=== PATIENT | male | born 1965 | race Caucasian/White ===

== ENCOUNTER 2017-02-04 22:50 | Emergency (ER) | payer BC ==
[~2017-02-04] VITALS: Ht 177.8 cm; Wt 76.2 kg
[2017-02-04] MEDS ORDERED: PROSCAR5 MG ORAL (23:16)
--- NOTE | 2017-02-04 23:22 | Emergency Room Report ---
History of Present Illness General Chief Complaint: Upper Extremity Injury Source: Patient Present Illness HPI Is a 51-year-old male who is right-hand dominant. He presents with chief complaint of left wrist injury. He was riding a riding his skateboard. He hit the brake and fell forward on an outstretched hand. He landed on his left wrist. Complaining of pain then. Since then his been getting progressively worse. Now throbbing in nature. Localized to the left wrist. Radiating to the forearm. Worse with movement. Pain is 9/10. No other injury. Did not pass out. Allergies: Coded Allergies: PENICILLINS (Verified Allergy, Unknown, 02/04/17) Patient History Past Medical History: see triage record, old chart reviewed Past Surgical History: none Pertinent Family History: none Social History: Denies: smoking Immunizations: other Reviewed Nursing Documentation: PMH: Agreed, PSxH: Agreed Nursing Documentation-[facility] Past Medical History: No Stated History Review of Systems Eye: Denies: eye pain, blurred vision ENT: Denies: ear pain, nose congestion, throat swelling Respiratory: Denies: cough, shortness of breath Cardiovascular: Denies: chest pain, palpitations Gastrointestinal: Denies: abdominal pain, diarrhea, nausea, vomiting Musculoskeletal: Reports: joint pain, muscle pain, Denies: back pain Skin: Denies: rash Neurological: Denies: headache, numbness Endocrine: Denies: increased thirst, increased urine Hematologic/Lymphatic: Denies: easy bruising All Other Systems: negative except mentioned in HPI Physical Exam Vital Signs Date Time Temp Pulse Resp B/P (MAP) Pulse Ox O2 Delivery O2 Flow Rate FiO2 02/04/17 23:08 98.2 70 18 118/84 100 Room Air vitals normal Sp02 EP Interpretation: reviewed, normal General Appearance: well appearing, no apparent distress, alert Head: normocephalic, atraumatic Eyes: bilateral eye PERRL, bilateral eye EOMI ENT: hearing grossly normal, normal pharynx Neck: full range of motion, supple, no meningismus Respiratory: chest non-tender, lungs clear, normal breath sounds Cardiovascular #1: regular rate, rhythm, no murmur Gastrointestinal: normal bowel sounds, non tender, no mass, no organomegaly, no bruit, non-distended Musculoskeletal: back normal, gait/station normal, tender - Tenderness to the left wrist. compartment is soft. Sensation normal. Radial pulse 2+. Decreased range of motion secondary to pain. Psychiatric: mood/affect normal Skin: warm/dry Procedures Splinting Splinting : Consent: Verbal Location: left wrist Hand-Made Type: plaster Splint: volar Pre-Proc Neuro Vasc Exam: normal Post-Proc Neuro Vasc Exam: normal Patient Tolerated: Well Complications: None Medical Decision Making Diagnostic Impression: Primary Impression: Scaphoid fracture, wrist, closed Qualified Codes: S62.025A - Nondisplaced fracture of middle third of navicular [scaphoid] bone of left wrist, initial encounter for closed fracture Additional Impression: Left wrist sprain Qualified Codes: S63.502A - Unspecified sprain of left wrist, initial encounter ER Course Patient present with a fall. X-ray suspicious for scaphoid fracture. We'll treat as such. He splinted. We'll discharge home. No evidence of septic joint. No evidence of compartment syndrome. Other X-Ray Diagnostic Results Other X-Ray Diagnostic Results : X-Ray ordered: Left wrist x-rays # of Views/Limited Vs Complete: 4 View Indication: Pain EP Interpretation: Yes Interpretation: no dislocation, no soft tissue swelling, other - Nondisplaced scaphoid fracture Impression: Other - Scaphoid fracture Interpreting ER Provider: Electronically signed by Stone Perales MD Last Vital Signs Date Time Temp Pulse Resp B/P (MAP) Pulse Ox O2 Delivery O2 Flow Rate FiO2 02/04/17 23:08 98.2 70 18 118/84 100 Room Air Status: improved Disposition: HOME, SELF-CARE Condition: Improved Scripts Hydrocodone/Acetaminophen 5-325* (HYDROCODONE/ACETAMINOPHEN 5-325*) 1 Each Tablet 1 TAB ORAL Q6H Y for For Pain, #30 TAB 0 Refills Prov: STONE PERALES M.D. 02/05/17 Additional Instructions: Elevate left arm. Ice pack to the area. Followup with your Dr. or with orthopedic doctor in 7 days. You may have a scaphoid fracture. If not better in a week, will need nadia-ray. Return if worse. STONE PERALES M.D. Feb 04, 2017 23:22
[2017-02-04 23:30] VITALS: BP 108/66
[2017-02-04] MEDS ORDERED: Norco 5mg/325mg tab ORAL ONE (23:30)
[2017-02-05] MEDS ORDERED: HYDROCODON-ACE1 EA15 ORAL (00:09)
[2017-02-05] MEDS ORDERED: HYDROmorphone 1mg/ml Carpuject IM ONE (00:15)
[2017-02-05 00:44] VITALS: BP 110/66
--- NOTE | 2017-02-05 11:07 | Diagnostic Imaging Report ---
Indication: Pain Findings: 3 views of the left wrist were obtained. No acute fractures, malalignment, erosions or periostitis are identified. Bone mineralization is within normal limits. Soft tissues are unremarkable. Impression: Negative examination of the left wrist.
== END 2017-02-05 00:50 | disposition home or self-care (01) ==
LOC: EMR 23:30
DX: S62.025A Nondisplaced fracture of middle third of navicular [scaphoid] bone of left wrist, initial encounter for closed fracture (principal); S63.502A Unspecified sprain of left wrist, initial encounter; V00.131A Fall from skateboard, initial encounter; Y93.51 Activity, roller skating (inline) and skateboarding; Y92.9 Unspecified place or not applicable; Z88.0 Allergy status to penicillin
CPT/HCPCS: 29125; 73110; 96372; 99284; J1170